=== PATIENT | male | born 1990 | race Caucasian/White ===

== ENCOUNTER 2017-05-01 23:08 | Emergency (ER) | payer BC, OTHER ==
[2017-05-01 23:26] VITALS: BP 116/55; PULSE 73; RESP 18; TEMP 97.9; O2SAT 94
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
== END 2017-05-02 00:47 | disposition home or self-care (01) ==
PROC: 0HQ0XZZ Repair Scalp Skin, External Approach (ICD-10-PCS; principal; 2017-05-01)
DX: S01.01XA Laceration without foreign body of scalp, initial encounter (principal); W20.8XXA Other cause of strike by thrown, projected or falling object, initial encounter

== ENCOUNTER 2018-02-09 14:18 | Emergency (ER) | payer OTHER ==
[2018-02-09 14:29] VITALS: BP 98/60
--- NOTE | 2018-02-09 14:49 | EDPHY ---
H & P Time Seen by Provider: 02/09/18 14:39 HPI/ROS: CHIEF COMPLAINT: Left forearm laceration HISTORY OF PRESENT ILLNESS: 27-year-old male with up-to-date tetanus, right- hand dominant was using a utility knife and accidentally sustained laceration to his left radial forearm earlier today . No paresthesia. No sensory motor deficits distally. No foreign body. PHYSICAL EXAM (Prior to examination, patient consented to physical exam, hands were washed and my usual and customary physical exam procedures followed) 1) GENERAL: Well-developed, well-nourished, alert and oriented. Appears to be in no acute distress. 2) HEAD: Normocephalic 3) HEENT: sclera anicteric 4) LUNGS: Breathing comfortably. 5) SKIN: 2.5 cm well-demarcated linear superficial laceration left mid forearm her radial aspect. Patient has a 1 cm fascial defect. 6) MUSCULOSKELETAL: Abduction abduction flexion extension distal intact no deficits. Brisk radial and ulnar pulses distally. No visible or palpable foreign bodies. Soft compartments. 7) NEUROLOGIC: Full sensation distally Smoking Status: Never smoked Constitutional: Initial Vital Signs Temperature (C) 36.8 C 02/09/18 14:27 Heart Rate 61 02/09/18 14:27 Respiratory Rate 16 02/09/18 14:27 Blood Pressure 98/60 L 02/09/18 14:27 O2 Sat (%) 99 02/09/18 14:27 O2 Delivery Mode Room Air Allergies/Adverse Reactions: No Known Allergies Allergy (Unverified 05/01/17 23:22) Home Medications: Medication Instructions Recorded NK [No Known Home Meds] 05/01/17 MDM/Departure - [facility] Procedures: Procedure: Laceration repair. I explained the indications, risks and benefits for both laceration repair and anesthetic administration. Verbal consent was obtained from the patient . The laceration on the left for was anesthetized using 0.5% bupivicaine with epinephrine . After anesthetic administered the patient was observed for a period of time and had no apparent adverse effects. The wound was cleaned, prepped, draped in normal sterile fashion and explored to its base. No foreign body seen, no foreign bodies palpated. There was a small fascial defect identified which is closed with 2 simple interrupted 5 O Vicryl sutures. Skin is closed with 5 simple interrupted 5 O Ethilon sutures No tendon injury was identified. The wound repair was complex. The procedure was performed by myself. Patient has been informed that scarring will occur, although efforts have been made to minimize this. ED Course/Re-evaluation: I saw this patient independently based on established practice protocols. Care of patient under supervision of secondary supervising physician Dr Gonzalez. - Depart Disposition: Home, Routine, Self-Care Clinical Impression: Laceration of left forearm Qualifiers: Encounter type: initial encounter Qualified Code(s): S51.812A - Laceration without foreign body of left forearm, initial encounter Condition: Good Instructions: Laceration (ED) Additional Instructions: Return to the ER if you develop redness, swelling, discharge, warmth to the wound, red streaks going up your arm, or any other symptoms that concern you. Referrals: Return, to the ER in 10 days for suture removal [Other] - As per Instructions
== END 2018-02-09 15:39 | disposition home or self-care (01) ==
PROC: 0HQEXZZ Repair Left Lower Arm Skin, External Approach (ICD-10-PCS; principal; 2018-02-09)
DX: S51.812A Laceration without foreign body of left forearm, initial encounter (principal); W26.0XXA Contact with knife, initial encounter; Y99.8 Other external cause status; Y93.89 Activity, other specified